=== PATIENT | female | born 1975 | race Caucasian/White ===

== ENCOUNTER → 2018-08-11 07:40 | Outpatient (CLI) | payer OTHER, SELFPAY ==
[2018-08-12 07:56] LABS: Basophils % 0.7 % (0.1-2.0); Eosinophils # 0.1 K/mm3 (0.0-0.4); Eosinophils % 1.4 % (0.1-12.0); Hematocrit 39.8 % (37.0-47.0); Hemoglobin 13.1 g/dL (12.2-16.2); Lymphocytes # 1.9 K/mm3 (0.7-4.5); Lymphocytes % 31.2 % (10-50); Mean Corpuscular Hemoglobin 29.9 pg (27.0-31.2); Mean Corpuscular Volume 90.8 fl (81-99); Mean Platelet Volume 9.4 fl (7.4-10.4); Monocytes # 0.3 K/mm3 (0.1-1.0); Monocytes % 4.3 % (1.7-9.3); Neutrophils # 3.8 K/mm3 (1.8-7.8); Neutrophils % 62.5 % (37.0-80.0); Platelet Count 240 K/mm3 (142-424); Red Blood Count 4.38 M/mm3 (4.20-5.40); Red Cell Distribution Width 13.7 % (11.5-17.5)
[2018-08-12 08:51] LABS: Alanine Aminotransferase 24 U/L (12-78); Albumin Level 4.3 gm/dL (3.4-5.0); Albumin/Globulin Ratio 1.3 (1.1-1.8); Alkaline Phosphatase 92 U/L (46-116); Anion Gap 14.6 mEq/L (5-15); Aspartate Amino Transferase 15 U/L (15-37); Bilirubin,Total 1.4 mg/dL (0.2-1.0); Blood Urea Nitrogen 12 mg/dL (7-18); Calcium 9.3 mg/dL (8.5-10.1); Carbon Dioxide 26 mmol/L (21.0-32.0); Chloride 104 mmol/L (98-107); Chol/HDL Ratio 2.6 (1-3.5); Cholesterol 166 mg/dL (140-200); Creatinine,Serum 0.72 mg/dL (0.55-1.02); Estimated Glomerular Filt Rate 88 ml/min (>60); Free T4 (Free Thyroxine) 1.18 ng/dl (0.76-1.46); GFR (African American) 107 ML/MIN (>60); Globulin 3.4 gm/dl (1.3-3.2); Glucose 103 mg/dL (74-106); HDL Cholesterol 64 mg/dL (29-89); LDL Cholesterol 87 mg/dL (0-130); Potassium 3.6 mmoL/L (3.5-5.1); Sodium 141 mmol/L (136-145); Thyroid Stimulating Hormone 1.52 uIU/ml (0.358-3.740); Total Protein,Serum 7.7 gm/dL (6.4-8.2); Triglycerides 76 mg/dL (30-200); VLDL Cholesterol 15 mg/dL (0-40)
[2018-08-13 07:16] LABS: Hep A Ab, IgM Negative (Negative); Hepatitis B Core Antibody IgM Negative (Negative); Hepatitis B Surface Antigen Negative (Negative)
[2018-08-14 11:57] LABS: Hepatitis C Antibody <0.1 s/co ratio (0.0-0.9); Vitamin D 25 Hydroxy 23.3 ng/mL (30.0-100.0)
== END ==
PROVIDERS: Visit Provider Emergency Medicine
DX: R53.83 Other fatigue (principal)
CPT/HCPCS: 80053; 80061; 80074; 82652; 84439; 84443; 85025

== ENCOUNTER → 2018-08-18 14:35 | Outpatient (CLI) | payer OTHER, SELFPAY ==
[2018-08-20 11:17] LABS: HIV Screen 4th Generation wRfx Non Reactive (Non Reactive); HSV 1 IgG, Type Spec >62.20 index (0.00-0.90); Rapid Plasma Reagin Ab Titer Non Reactive (NonRea<1:1)
== END ==
PROVIDERS: Visit Provider Nurse Practitioner Obstetrics & Gynecology
DX: Z72.51 High risk heterosexual behavior (principal)
CPT/HCPCS: 36415; 86592; 86695; 86703; 86790; G0432

== ENCOUNTER 2022-09-18 10:19 | Emergency (ER) | payer BC, SELFPAY ==
[2022-09-18 10:20] VITALS: BP 170/89; PULSE 129; RESP 20; TEMP 36.4; O2SAT 97; BMI 26.6
--- NOTE | 2022-09-18 10:42 | ECG_ITS ---
APPROVED REPORT Exam: Resting ECG HR:108 bpm ECG Measurements Heart Rate 108 AXES TX 162 P 70 QRSd 85 QRS 75 QT 333 T 68 QTc 397 Conclusion SINUS TACHYCARDIA MODERATE ST DEPRESSION [0.05+ mV ST DEPRESSION] ABNORMAL ECG UNCONFIRMED REPORT Electronically signed by : Chaitanya Orantes MD 09/19/2022 08:11:47
--- NOTE | 2022-09-18 10:45 | [facility].EDGENADL ---
Discharge Plan Disposition Patient Disposition: Home, Self-Care Condition: Fair Prescriptions Prescriptions: New ondansetron 4 mg tablet,disintegrating 4 mg PO Q8H PRN (Reason: nausea and vomiting) Qty: 6 0RF No Action triamcinolone acetonide 0.1 % ointment 1 applic TP BID Qty: 80 3RF valacyclovir 500 mg tablet See Rx Instructions .ROUTE .COMPLEX Qty: 30 11RF Dose Instruction: Take 1 tablet by mouth once daily Rx Instructions: Take 1 tablet by mouth once daily Referrals Follow up/Referrals: Provider,Referral, MD [Referring] - See instructions Activity Restrictions/Add. Instructions Additional Instructions/Restrictions: May take Tylenol or ibuprofen for pain. Drink plenty of fluids. Clear liquids only today. Zofran as needed for nausea. If not improving in 12 to 24 hours or if symptoms are worsening including increasing pain, or pain moving to right lower abdomen, or fever, or repetitive vomiting return to the emergency department for repeat evaluation. Clinical Impressions Clinical Impression: Abdominal pain, Diarrhea Stand Alone Forms Stand Alone Forms: Work/School Release Instructions Patient Instructions: DI for Acute Abdominal Pain, DI for Diarrhea and Traveler's Diarrhea -- Adult Discharge ED Provider: Hira Carrero General Adult HPI General Chief complaint: Abdominal Pain Stated complaint: soa, rib and back pain Time Seen by Provider: 09/18/22 10:56 History of Present Illness HPI narrative: States at 3 AM she had onset of diffuse upper abdominal cramping. She has nausea but no vomiting. She has had 4 episodes of diarrhea without blood. She has felt hot and cold and sweaty, but has not taken her temperature. She states that this morning she also developed pain in between her shoulder blades in her back, difficulty breathing, pain with breathing. Denies cough or hemoptysis. No recent surgery, hospitalizations, travel. Exposed to several residents at her workplace that have had diarrhea illness recently. Related Data Previous Rx's Medication Instructions Recorded valacyclovir 500 mg tablet See Rx Instructions .Route 10/21/21 .COMPLEX #30 tabs triamcinolone acetonide 0.1 % 1 applic topical BID #80 grams 02/17/22 topical ointment ondansetron 4 mg disintegrating 4 mg PO Q8H PRN nausea and 09/18/22 tablet vomiting #6 tabs Allergies Allergy/AdvReac Type Severity Reaction Status Date / Time No Known Allergies Allergy Verified 02/21/22 14:09 [facility] Disclaimer: The information contained in this section may have been updated after the patient was seen, as this information can be updated by other users. Medical History (Updated 09/18/22 @ 14:44 by Hira Carrero MD) Vitamin D deficiency Social History Smoking Status: Never smoker alcohol intake: never substance use type: denies use current occupational status: other Travel in the last 8 weeks: None ROS Obtained: Yes Systems reviewed as appropriate & no additional complaints except as documented Constitutional Constitutional: Reports chills, Reports fever(s) (Subjectively fevers), Denies headache(s) and Denies weakness ENT Ears, Nose, Mouth, and Throat: Denies headache(s), Denies nasal discharge and Denies sore throat Cardiovascular Cardiovascular: Reports chest pain Respiratory Respiratory: Reports shortness of breath, Denies cough and Reports pain with breathing Gastrointestinal Gastrointestingal: Reports abdominal pain, diarrhea and nausea; Denies constipation or vomiting Genitourinary Female Genitourinary: Denies difficulty voiding, Denies dysuria and Denies flank pain Musculoskeletal Musculoskeletal: Denies numbness Neurologic Neurologic: Denies headache(s), Denies numbness and Denies weakness Physical Exam General General appearance: alert and in no apparent distress Head Head exam: atraumatic and normocephalic Eye Eye exam: Present normal appearance and EOM
--- NOTE | 2022-09-18 10:50 | CT_ITS ---
FINAL REPORT TECHNIQUE: After the administration of intravenous contrast, axial images were obtained through the abdomen and pelvis by computed tomography. This study was performed with technique to keep radiation doses as low as reasonably achievable, (ALARA). Individualized dose reduction techniques using automated exposure control or adjustment of the MA and/or KV according to the patient's size were employed. CLINICAL HISTORY: abdominal pain x 2 weeks FINDINGS: Abdomen: The lung bases are clear. The liver is normal in size and attenuation. Patient is status post cholecystectomy. The spleen is unremarkable. The adrenals are normal. The pancreas is unremarkable. The kidneys enhance appropriately. The aorta is normal in caliber. There is no free fluid or adenopathy. There are fluid-filled bowel loops which are nonspecific which could represent ileus or enteritis. Pelvis: The appendix is mildly dilated at 7 mm without adjacent inflammation or convincing evidence of appendicitis. The urinary bladder is unremarkable. There is no free fluid or adenopathy. IMPRESSION: Nonspecific, fluid-filled bowel loops which could represent ileus or enteritis. Mildly dilated appendix without convincing evidence of appendicitis. No adjacent inflammation or free fluid. Reviewed, Interpreted and Dictated by Jose Mckeon III, MD Transcribed by Janine Adamson Authenticated and [facility]
--- NOTE | 2022-09-18 10:54 | PC.NURSE ---
pt unable to give urine sample at this time
--- NOTE | 2022-09-18 10:59 | CT_ITS ---
FINAL REPORT CLINICAL HISTORY: lt sided cp, soa, pleuritic pain radiates into back, FINDINGS: Thin section axial CT images of the chest were obtained with contrast. 3D reformatted images were also obtained. This study was performed with techniques to keep radiation doses as low as reasonably achievable (ALARA). Individualized dose reduction techniques using automated exposure control or adjustment of mA and/or kV according to the patient's size were employed. CTA CHEST There is suboptimal contrast timing on this exam. There is no evidence of pulmonary embolism. There is no evidence of thoracic aortic aneurysm or dissection. There is no evidence of mediastinal or hilar mass or adenopathy. There is mild diffuse esophageal wall thickening, favor inflammatory. There is no evidence of pulmonary mass or nodule. No localized inflammatory process is seen within the lungs. IMPRESSION: No evidence of pulmonary embolism. Mild diffuse esophageal wall thickening, favor inflammatory. Reviewed, Interpreted and Dictated by Jose Mckeon III, MD Transcribed by Yulisa Costa Authenticated and [facility]
--- NOTE | 2022-09-18 11:01 | PC.NURSE ---
Warm blanket and pillow provided.
[2022-09-18 11:08] LABS: Basophils # 0.1 K/mm3 (0-0.2); Basophils % 1.2 % (0.1-2.0); Eosinophils # 0.2 K/mm3 (0.0-0.4); Eosinophils % 2.5 % (0.1-12.0); Hematocrit 43.6 % (37.0-47.0); Hemoglobin 15.2 g/dL (12.2-16.2); Lymphocytes # 1.3 K/mm3 (0.7-4.5); Lymphocytes % 14.8 % (10-50); Mean Corpuscular HGB Conc 34.8 g/dL (31.8-35.4); Mean Corpuscular Hemoglobin 30.3 pg (27.0-31.2); Mean Corpuscular Volume 86.8 fl (81-99); Mean Platelet Volume 9.2 fl (7.4-10.4); Monocytes # 0.2 K/mm3 (0.1-1.0); Monocytes % 2.9 % (1.7-9.3); Neutrophils # 6.6 K/mm3 (1.8-7.8); Neutrophils % 78.6 % (37.0-80.0); Platelet Count 232 K/mm3 (142-424); Red Blood Count 5.02 M/mm3 (4.20-5.40); Red Cell Distribution Width 13.3 % (11.5-17.5); White Blood Count 8.5 K/mm3 (4.8-10.8)
--- NOTE | 2022-09-18 11:09 | PC.NURSE ---
Pt updated on plan of care. Pt aware of the need for urine specimen. IV fluids being administered at this time. remains at bedside.
[2022-09-18 11:10] LABS: Coronavirus 19, PCR Not Detected (NotDetected); Influenza A, PCR Not Detected (NotDetected); Influenza B, PCR Not Detected (NotDetected)
[2022-09-18 11:20] LABS: Chloride 107 mmol/L (98-107); Potassium 3.5 mmoL/L (3.5-5.1); Sodium 138 mmol/L (136-145)
[2022-09-18 11:22] LABS: Amylase 71 U/L (30-110)
[2022-09-18 11:23] LABS: Alanine Aminotransferase 59 U/L (12-78); Albumin Level 4.2 g/dl (3.5-5.0); Albumin/Globulin Ratio 1.4 (1.1-1.8); Alkaline Phosphatase 107 U/L (38-126); Anion Gap 10.5 mEq/L (5-15); Aspartate Amino Transferase 102 U/L (14-36); Bilirubin,Total 2.1 mg/dl (0.2-1.3); Blood Urea Nitrogen 14 mg/dl (7-17); Calcium 8.7 mg/dl (8.4-10.2); Carbon Dioxide 24 mmol/L (22.0-30.0); Creatinine Clearance Estimated 129 mL/min (50-200); Estimated Glomerular Filt Rate 107 ml/min (>60); GFR (African American) 130 ML/MIN (>60); Globulin 2.9 g/dL (1.3-3.2); Glucose 126 mg/dl (74-100); Lipase 190 U/L (23-300); Total Protein,Serum 7.1 g/dl (6.3-8.2)
--- NOTE | 2022-09-18 11:23 | PC.NURSE ---
rounded on pt stated no complaints at this time,son @ bs
--- NOTE | 2022-09-18 11:25 | PC.NURSE ---
pt updated that we are waiting for her ct scans to be taken. Pt states she is feeling better. Son at
[2022-09-18 11:36] LABS: Troponin I < 0.01 ng/ml (0.00-0.034)
[2022-09-18 11:37] LABS: HCG Qualitative, Serum Negative (Negative)
--- NOTE | 2022-09-18 11:59 | PC.NURSE ---
pt back to bed from CT
--- NOTE | 2022-09-18 12:37 | PC.NURSE ---
pt ambulatory to restroom without complications
--- NOTE | 2022-09-18 12:42 | PC.NURSE ---
UA sent to lab; pt has no other needs at this time. Son at , he also reports no needs. Call light within reach
[2022-09-18 12:47] VITALS: BP 128/83; PULSE 94; O2SAT 98
[2022-09-18 12:58] LABS: Microscopic, Urine URINE MICROSCOPIC (MICROSCOPIC)
[2022-09-18 13:00] VITALS: PULSE 89; O2SAT 97
[2022-09-18 13:05] LABS: Appearance,Urine CLEAR (Clear); Bilirubin,Urine Negative (Negative); Blood, Urine Negative (Negative); Color,Urine YELLOW (Yellow); Glucose,Urine (UA) Negative (Negative); Ketones,Urine Negative (Negative); Leukocyte Esterase,Urine Negative (Negative); Nitrate,Urine Negative (Negative); Protein,Urine Negative (Negative); Specific Gravity, Urine <= 1.005 (1.005-1.030); Urobilinogen,Urine 0.2 EU/dl (0.2)
[2022-09-18 13:23] LABS: Bacteria,Urine Trace /lpf; Squamous Epithelial Cell,Urine Occasional #/hpf (0-5)
[2022-09-18 13:30] VITALS: PULSE 94; O2SAT 96
--- NOTE | 2022-09-18 14:32 | PC.NURSE ---
MD at bedside to discuss final results/disposition.
--- NOTE | 2022-09-18 14:33 | PC.NURSE ---
ER at for update on POC; family at
[2022-09-18 15:01] VITALS: BP 144/94; PULSE 89; RESP 19; TEMP 36.4; O2SAT 99
== END 2022-09-18 15:02 | disposition home or self-care (01) ==
PROVIDERS: Emergency Provider Emergency Medicine; PCP Internal Medicine Adolescent Medicine
DX: R10.10 Upper abdominal pain, unspecified (principal); R19.7 Diarrhea, unspecified; E55.9 Vitamin D deficiency, unspecified; Z20.822 Contact with and (suspected) exposure to COVID-19
CPT/HCPCS: 71275; 74177; 80053; 81001; 82150; 83690; 84484; 84703; 85025; 93005; 96361; 96374; 96375; 99285; C9803; J2405; Q9967; U0003; U0005

== ENCOUNTER → 2022-10-16 23:22 | Outpatient (CLI) | payer BC, SELFPAY | PROVIDERS: PCP Student in an Organized Health Care Education/Training Program; Visit Provider Student in an Organized Health Care Education/Training Program | DX: J02.9 Acute pharyngitis, unspecified (principal); R05.9 Cough, unspecified | CPT/HCPCS: 87070; C9803; U0003; U0005 ==

== ENCOUNTER 2024-04-07 15:51 | Outpatient (CLI) | payer BC, SELFPAY ==
[2024-04-07 17:52] LABS: Coronavirus 19, PCR Not Detected (NotDetected); Influenza A, PCR Not Detected (NotDetected); Influenza B, PCR Not Detected (NotDetected)
== END 2024-04-07 23:59 | disposition home or self-care (01) ==
LOC: LAB.DROPOF 04-08 14:51
PROVIDERS: PCP Student in an Organized Health Care Education/Training Program; Visit Provider Student in an Organized Health Care Education/Training Program
DX: J02.9 Acute pharyngitis, unspecified (principal); J34.89 Other specified disorders of nose and nasal sinuses
CPT/HCPCS: 87070; 87077; 87186; 87636